=== PATIENT | male | born 1990 ===

== ENCOUNTER 2019-07-04 21:57 | Outpatient (CLI) | payer SELFPAY ==
[2019-07-07 23:19] LABS: Chlamydia by PCR Not Detected (NotDetected); GC by PCR Not Detected (NotDetected)
== END 2019-07-04 21:58 | disposition home or self-care (01) ==
LOC: MADLAB 21:57
PROVIDERS: ATTEND Family Medicine
DX: R36.9 Urethral discharge, unspecified (principal); R30.0 Dysuria
CPT/HCPCS: 87086; 87491; 87591